=== PATIENT | female | born 1940 | race Caucasian/White ===

== ENCOUNTER 2017-10-16 10:48 | Emergency (ER) | payer MEDICARE, OTHER ==
[2017-10-16 11:43] LABS: BASO # 0.1 10^3/uL (0.0-0.2); BASO % 0.6 % (0.0-1.0); EOS # 0.2 10^3/uL (0.0-0.50); EOS % 1.7 % (0.0-3.0); HEMATOCRIT 41.2 % (36.0-47.0); HEMOGLOBIN 13.6 g/dl (12.0-15.5); IMMATURE GRANULOCYTE % 0.5 % (0-3.0); LYMPH # 1.1 10^3/uL (1.5-4.5); LYMPH % 13.1 % (24.0-44.0); MEAN CORPUSCULAR HEMOGLOBIN 29.6 pg (27.0-33.0); MEAN CORPUSCULAR VOLUME 89.6 fl (80.0-96.0); MONO # 0.5 10^3/uL (0.0-0.8); MONO % 6.2 % (0.0-5.0); NEUTROPHILS # 6.8 10^3/uL (1.8-7.7); NEUTROPHILS % 77.9 % (36.0-66.0); PLATELET COUNT, AUTOMATED 251 10^3/uL (150-450); RED CELL DISTRIBUTION WIDTH 12.1 % (11.5-14.5); WHITE BLOOD COUNT 8.7 10^3/uL (4.0-10.0)
[2017-10-16 11:53] LABS: ALBUMIN 3.6 GM/DL (3.2-5.2); ALBUMIN/GLOBULIN RATIO 1.03 (1.00-1.93); ALKALINE PHOSPHATASE 90 U/L (45-117); ALT/SGPT 19 U/L (12-78); ANION GAP 5 MEQ/L (8-16); AST/SGOT 14 U/L (7-37); BILIRUBIN,DIRECT < 0.1 MG/DL (0.0-0.2); BILIRUBIN,TOTAL 0.3 MG/DL (0.2-1.0); BLOOD UREA NITROGEN 12 MG/DL (7-18); CALCIUM LEVEL 9.1 MG/DL (8.8-10.2); CARBON DIOXIDE LEVEL 30 MEQ/L (21-32); CHLORIDE LEVEL 103 MEQ/L (98-107); CREATININE FOR GFR 0.81 MG/DL (0.55-1.30); GLOMERULAR FILTRATION RATE > 60.0 (>39); GLUCOSE, FASTING 98 MG/DL (70-100); LIPASE 157 U/L (73-393); SODIUM LEVEL 138 MEQ/L (136-145); TOTAL PROTEIN 7.1 GM/DL (6.4-8.2)
[2017-10-16 12:00] LABS: INR 0.99; PROTHROMBIN TIME 13.2 SECONDS (12.1-14.4)
[2017-10-16 12:01] LABS: PARTIAL THROMBOPLASTIN TIME 30.8 SECONDS (25.4-37.6)
[2017-10-16] MEDS: GASTROGRAFIN SOLUTION 30ML PO ×2 (13:22→13:49)
[2017-10-16] MEDS ORDERED: ISOVUE-370 76% 100ML VIAL (Q9967) As Ordered (14:13)
== END 2017-10-16 17:29 | disposition home or self-care (01) ==
LOC: M ED 10:48
DX: K57.30 Diverticulosis of large intestine without perforation or abscess without bleeding (principal); K62.5 Hemorrhage of anus and rectum; I73.00 Raynaud's syndrome without gangrene; Z87.442 Personal history of urinary calculi; Z80.0 Family history of malignant neoplasm of digestive organs; Z88.5 Allergy status to narcotic agent; Z88.8 Allergy status to other drugs, medicaments and biological substances; Z88.0 Allergy status to penicillin; Z88.2 Allergy status to sulfonamides; Z91.048 Other nonmedicinal substance allergy status; Z79.899 Other long term (current) drug therapy
CPT/HCPCS: Q9963

== ENCOUNTER → 2017-10-23 | Outpatient (REF) | payer MEDICARE ==
[2017-10-23 19:17] LABS: FERRITIN 103 NG/ML (8-252); IRON (FE) 63 UG/DL (50-170); PERCENT SATURATION 20.5 % (13.2-45.0); TOTAL IRON BINDING CAPACITY 307 UG/DL (250-450)
[2017-10-25 12:19] LABS: CONTROL LINE HPYORI INT CTR LINE PRESENT; H PYLORI QUALITATIVE IgG NEGATIVE (NEGATIVE)
== END ==
LOC: M LAB REF 17:10
DX: K57.31 Diverticulosis of large intestine without perforation or abscess with bleeding (principal)
CPT/HCPCS: 83550

== ENCOUNTER 2017-12-13 10:25 | Day surgery (SDC) | payer MEDICARE ==
[2017-12-13] MEDS: NS 1,000 ML IV (10:46)
[2017-12-13] MEDS ORDERED: PROPOFOL 200 MG/20 ML VIAL As Ordered (11:36)
[2017-12-13] MEDS ORDERED: LIDOCAINE 2% INJ 100 MG/5 ML SDV (FOR ANES.) As Ordered (11:36)
[2017-12-13] MEDS ORDERED: ePHEDrine SULFATE 25 MG/5 ML(5MG/ML) SYRINGE As Ordered (11:59)
== END 2017-12-13 12:12 | disposition home or self-care (01) ==
LOC: M OPP 10:25
DX: K62.5 Hemorrhage of anus and rectum (principal); D12.5 Benign neoplasm of sigmoid colon; K64.0 First degree hemorrhoids; M25.511 Pain in right shoulder; M25.512 Pain in left shoulder; Z78.0 Asymptomatic menopausal state; Z87.442 Personal history of urinary calculi; Z88.5 Allergy status to narcotic agent; Z88.0 Allergy status to penicillin; Z88.8 Allergy status to other drugs, medicaments and biological substances; Z88.2 Allergy status to sulfonamides; Z91.048 Other nonmedicinal substance allergy status; Z80.7 Family history of other malignant neoplasms of lymphoid, hematopoietic and related tissues; Z80.8 Family history of malignant neoplasm of other organs or systems
CPT/HCPCS: 45385

== ENCOUNTER → 2018-07-10 | Outpatient (CLI) | payer MEDICARE ==
[~2018-07-10] MED LIST: CENTCHW4 PO; CIPR-249 PO; HYDR-3715 PO; NAPR250T4 PO; OSTETAB4 PO; REFR0.5D8 OU; TYLE325T5 PO; VITA2000 PO; ZOFR4TAB16 PO
--- NOTE | 2018-07-10 13:54 | REP ---
Chest x-ray: Two views. History: Kidney stone. Comparison study: February 07, 2011. Findings: The lungs are symmetrically aerated and free of infiltrate. The pleural angles are sharp. There is a granulomatous calcification in the left upper perihilar region which is unchanged from the 2011 study. The aorta is tortuous. No significant bony abnormality is seen. There are some degenerative changes in the thoracic spine. Vascular calcification is noted in the abdomen. Impression: No active disease. Electronically Signed by Tushar Boyer MD 07/10/2018 08:39 P
[2018-07-10 15:25] LABS: BLOOD UREA NITROGEN 14 MG/DL (7-18); CALCIUM LEVEL 9.5 MG/DL (8.8-10.2); CARBON DIOXIDE LEVEL 32 MEQ/L (21-32); CHLORIDE LEVEL 105 MEQ/L (98-107); CREATININE FOR GFR 0.81 MG/DL (0.55-1.30); GLOMERULAR FILTRATION RATE > 60.0 (>39); GLUCOSE, FASTING 97 MG/DL (70-100); POTASSIUM SERUM 4.2 MEQ/L (3.5-5.1); SODIUM LEVEL 139 MEQ/L (136-145)
[2018-07-10 15:29] LABS: INR 0.99; PROTHROMBIN TIME 13.2 SECONDS (12.1-14.4)
[2018-07-10 15:30] LABS: PARTIAL THROMBOPLASTIN TIME 34.6 SECONDS (25.4-37.6)
[2018-07-10 15:35] LABS: HEMATOCRIT 43.9 % (36.0-47.0); HEMOGLOBIN 13.6 g/dl (12.0-15.5); MEAN CORPUSCULAR HEMOGLOBIN 27.8 pg (27.0-33.0); MEAN CORPUSCULAR VOLUME 89.8 fl (80.0-96.0); PLATELET COUNT, AUTOMATED 269 10^3/uL (150-450); RED BLOOD COUNT 4.89 10^6/uL (4.00-5.40); WHITE BLOOD COUNT 8.4 10^3/uL (4.0-10.0)
== END ==
LOC: M SMT 11:07
PROVIDERS: ATTEND Nurse Practitioner Family
DX: Z01.818 Encounter for other preprocedural examination (principal); N20.0 Calculus of kidney

== ENCOUNTER → 2018-07-16 | Outpatient (REF) | payer MEDICARE ==
[2018-07-16 20:02] LABS: APPEARANCE, URINE HAZY (CLEAR); BACTERIA, URINE AUTO NEGATIVE (NEGATIVE); BILIRUBIN, URINE AUTO NEGATIVE (NEGATIVE); BLOOD, URINE BLOOD 2+ (NEGATIVE); CALCIUM OXALATE CRYSTALS LARGE; COLOR, URINE YELLOW (YELLOW); GLUCOSE, URINE (UA) AUTO NEGATIVE (NEGATIVE); KETONE, URINE AUTO NEGATIVE (NEGATIVE); LEUKOCYTE ESTERASE, URINE AUTO TRACE (NEGATIVE); MUCUS, URINE SMALL (NEGATIVE); NITRITE, URINE AUTO NEGATIVE (NEGATIVE); PROTEIN, URINE AUTO NEGATIVE (NEGATIVE); RBC, URINE AUTO 6 /HPF (0-3); SPECIFIC GRAVITY URINE AUTO 1.013 (1.002-1.035); SQUAMOUS EPITHELIAL CELL UR AU 0 /HPF (0-6); UROBILINOGEN, URINE AUTO 0.2 mg/dL (0.0-2.0); WBC, URINE AUTO 12 /HPF (0-3)
== END ==
LOC: M SMT 19:13
PROVIDERS: ATTEND Nurse Practitioner Family
DX: Z01.818 Encounter for other preprocedural examination (principal); N20.0 Calculus of kidney

== ENCOUNTER 2018-07-25 07:21 | Day surgery (SDC) | payer MEDICARE ==
[~2018-07-25] VITALS: Ht 172.7 cm; Wt 70.8 kg
[~2018-07-25 07:21] MED LIST changes: +CIPROFLOXACIN 400 MG in APPROPRIATE DILUENT 1 EA IV ONE; +LR 1,000 ML IV SCH
[2018-07-25] MEDS ORDERED: CIPR-249 PO (08:04)
[2018-07-25] MEDS ORDERED: SCOPOLAMINE 1MG TRANSDERMAL PATCH As Ordered ONE (08:53)
[2018-07-25] MEDS ORDERED: CONRAY-60 60% 50ML VIAL (Q9961) As Ordered ONE (09:00)
[2018-07-25] MEDS ORDERED: SCOPOLAMINE 1MG TRANSDERMAL PATCH TOP ONE (09:00)
[2018-07-25] MEDS ORDERED: ceFAZolin 2 GM/D5W 50 ML IV BAG (J0690 PER 500MG) As Ordered ONE (09:04)
[2018-07-25] MEDS ORDERED: ONDANSETRON 4MG/2ML VIAL (J2405) As Ordered ONE (09:32)
[2018-07-25] MEDS ORDERED: MIDAZOLAM INJ 2 MG/2 ML VIAL (J2250) As Ordered ONE (09:32)
[2018-07-25] MEDS ORDERED: PROPOFOL 200 MG/20 ML VIAL As Ordered ONE ×4 (09:32→10:49)
[2018-07-25] MEDS ORDERED: dexameTHASONE 4 MG/ML 1ML VIAL (J1100) As Ordered ONE (09:32)
[2018-07-25] MEDS ORDERED: fentaNYL 100 MCG/2 ML INJECTION (J3010) As Ordered ONE (09:32)
[2018-07-25] MEDS ORDERED: ePHEDrine SULFATE 25 MG/5 ML(5MG/ML) SYRINGE As Ordered ONE (09:32)
[2018-07-25] MEDS ORDERED: LIDOCAINE 2% INJ 100 MG/5 ML SDV (FOR ANES.) As Ordered ONE (09:32)
[2018-07-25] MEDS ORDERED: fentaNYL 100 MCG/2 ML INJECTION (J3010) IV PRN (11:30)
[2018-07-25] MEDS ORDERED: LR 1,000 ML IV SCH (11:30)
[2018-07-25] MEDS ORDERED: NORCO, ANEXSIA 5/325MG TABLET (HYDROcodone/ACETAMINOPHEN) PO PRN ×2 (11:30→11:45)
[2018-07-25] MEDS ORDERED: ONDANSETRON 4MG/2ML VIAL (J2405) IV PRN (11:30)
[2018-07-25] MEDS ORDERED: oxyBUTYnin 5 MG TAB PO PRN (11:45)
--- NOTE | 2018-07-25 11:56 | REP ---
Retrograde pyelogram: Four views. History: Stent placement. 16 seconds of fluoroscopy time is reported. Findings: A sequence of four last image hold fluoroscopically obtained spot radiographs of the abdomen document bilateral ureteral cannulation, contrast injection, and stent placement. Electronically Signed by Tushar Boyer MD 07/25/2018 03:42 P
[2018-07-25 12:40] VITALS: BP 163/77
--- NOTE | 2018-07-25 15:28 | RO ---
DATE OF PROCEDURE: 07/25/2018 PREPROCEDURE DIAGNOSIS: Bilateral kidney stones. POSTPROCEDURE DIAGNOSIS: Bilateral kidney stones. PROCEDURE: Cystoscopy, bilateral ureteroscopy with laser lithotripsy and basket extraction of stones, bilateral retrograde pyelogram with intraoperative interpretation of images, bilateral ureteral stent placement. SURGEON: Dr. Derian Beal. DESULFURIZER MACHINE: None. ANESTHESIA: General. OPERATIVE INDICATIONS: This is a 77-year-old female, who on recent CT scan was found to have a few distal right ureteral stones along with bilateral kidney stones. She is brought to the operating room today with the above listed procedure. DESCRIPTION OF PROCEDURE: The patient was brought to the operating room and general anesthesia was induced. Prophylactic antibiotics were infused. She was then placed in the dorsal lithotomy position, prepped and draped in the usual sterile fashion. At this point a wire was advanced up the right collecting system. I then went up the right ureter with a short semi-rigid ureteroscope and no stones were seen in the ureter. I examined all the way up to the ureteropelvic junction. No stones were seen, indicating that she passed her ureteral stones. At this point, a ureteral access sheath was advanced up the right collecting system. I then went up with the flexible ureteroscope. The right kidney was thoroughly examined and a few stones were seen with the largest measuring around 7 mm in size. The stone was then fragmented into smaller pieces with a laser fiber and then all the fragments were removed. Once satisfied all of the fragments had been removed, a retrograde pyelogram was performed and was notable for mild right hydronephrosis with no extravasation. I then removed the access sheath along with the ureteroscope and once again, no stones were seen within the ureter. I then utilized the wire to advance a 6-Luxembourger x 22-32 cm JJ ureteral stent up the right collecting system. The wire was removed and there were adequate curls of the stent in the right ureteral pelvis and in the bladder. I then advanced the wire up the left collecting system. I then advanced a ureteral access sheath over the wire and went up with the flexible ureteroscope. The left kidney was thoroughly examined and the only stone see was the 1.4 cm stone in the upper pole jorge. The stone was then fragmented into smaller pieces using a laser fiber and all the fragments were removed. No fragments remained except for a few very tiny fragments which should be small enough to pass. At this point a retrograde pyelogram was performed and was notable for mild left hydronephrosis with no extravasation. I then withdrew the ureteroscope along with the access sheath and no stones were seen in the ureter. I then utilized the wire to advance a 6-Luxembourger by 22-32 cm JJ ureteral stent up to the left collecting system. The wire was removed and there were adequate curls of the stent in the left renal pelvis and in the bladder. The bladder was drained of all fluids and this marked the conclusion of the procedure. The patient was then taken out of dorsal lithotomy position, awakened from anesthesia and transported to the recovery room in stable condition. ESTIMATED BLOOD LOSS: 5 mL. COMPLICATIONS: None. SPECIMENS: Kidney stone fragments. PLAN: The patient will followup in the clinic in approximately 2-3 weeks for stent removal. She will also require a 24 hour urine collection and metabolic workup of stones within the next few months. BENNY
[2018-08-01 00:06] LABS: CA Oxalate Dihy 55 % (.); COMMENT Note: (.); Ca Ox Monohydrate 15 % (.)
== END 2018-07-25 13:03 | disposition home or self-care (01) ==
LOC: M SDC 07:21
PROVIDERS: ATTEND Urology
DX: N20.0 Calculus of kidney (principal); K21.9 Gastro-esophageal reflux disease without esophagitis; Z88.0 Allergy status to penicillin; Z88.2 Allergy status to sulfonamides; Z79.899 Other long term (current) drug therapy
CPT/HCPCS: 52356; 74420; 82360; 88300; C1769; C1894; C2617; J0690; J1100; J2250; J2405; J3010; Q9961

== ENCOUNTER → 2018-11-06 | Outpatient (REF) | payer MEDICARE ==
[~2018-11-06] MED LIST changes: -CIPROFLOXACIN 400 MG in APPROPRIATE DILUENT 1 EA IV ONE; -LR 1,000 ML IV SCH
[2018-11-07 10:58] LABS: APPEARANCE, URINE HAZY (CLEAR); BACTERIA, URINE AUTO NEGATIVE (NEGATIVE); BILIRUBIN, URINE AUTO NEGATIVE (NEGATIVE); BLOOD, URINE BLOOD NEGATIVE (NEGATIVE); CALCIUM OXALATE CRYSTALS LARGE; COLOR, URINE YELLOW (YELLOW); GLUCOSE, URINE (UA) AUTO NEGATIVE (NEGATIVE); KETONE, URINE AUTO NEGATIVE (NEGATIVE); LEUKOCYTE ESTERASE, URINE AUTO TRACE (NEGATIVE); MUCUS, URINE SMALL (NEGATIVE); NITRITE, URINE AUTO NEGATIVE (NEGATIVE); PROTEIN, URINE AUTO NEGATIVE (NEGATIVE); RBC, URINE AUTO 6 /HPF (0-3); SPECIFIC GRAVITY URINE AUTO 1.012 (1.002-1.035); SQUAMOUS EPITHELIAL CELL UR AU 0 /HPF (0-6); UROBILINOGEN, URINE AUTO 0.2 mg/dL (0.0-2.0); WBC, URINE AUTO 10 /HPF (0-3)
== END ==
LOC: M SMT 09:48
PROVIDERS: ATTEND Nurse Practitioner Women's Health
DX: Z87.442 Personal history of urinary calculi (principal)

== ENCOUNTER → 2019-05-09 | Outpatient (REF) | payer MEDICARE ==
[2019-05-09 14:25] LABS: AMORPHOUS SEDIMENT SMALL (NEGATIVE); APPEARANCE, URINE HAZY (CLEAR); BACTERIA, URINE AUTO 1+ (NEGATIVE); BILIRUBIN, URINE AUTO NEGATIVE (NEGATIVE); BLOOD, URINE BLOOD NEGATIVE (NEGATIVE); COLOR, URINE YELLOW (YELLOW); GLUCOSE, URINE (UA) AUTO NEGATIVE (NEGATIVE); KETONE, URINE AUTO NEGATIVE (NEGATIVE); LEUKOCYTE ESTERASE, URINE AUTO 3+ (NEGATIVE); MUCUS, URINE SMALL (NEGATIVE); NITRITE, URINE AUTO NEGATIVE (NEGATIVE); PROTEIN, URINE AUTO NEGATIVE (NEGATIVE); RBC, URINE AUTO 2 /HPF (0-3); SPECIFIC GRAVITY URINE AUTO 1.011 (1.002-1.035); SQUAMOUS EPITHELIAL CELL UR AU 6 /HPF (0-6); TRANSITIONAL EPITHELIAL AUTO 3 /HPF; UROBILINOGEN, URINE AUTO 0.2 mg/dL (0.0-2.0); WBC, URINE AUTO 17 /HPF (0-3)
== END ==
LOC: M SMT 13:28
PROVIDERS: ATTEND Nurse Practitioner Women's Health
DX: Z87.442 Personal history of urinary calculi (principal); N20.0 Calculus of kidney

== ENCOUNTER → 2019-11-13 | Outpatient (REF) | payer MEDICARE ==
[2019-11-13 14:21] LABS: APPEARANCE, URINE CLEAR (CLEAR); BACTERIA, URINE AUTO 1+ (NEGATIVE); BILIRUBIN, URINE AUTO NEGATIVE (NEGATIVE); BLOOD, URINE BLOOD 1+ (NEGATIVE); COLOR, URINE YELLOW (YELLOW); GLUCOSE, URINE (UA) AUTO NEGATIVE (NEGATIVE); KETONE, URINE AUTO NEGATIVE (NEGATIVE); LEUKOCYTE ESTERASE, URINE AUTO TRACE (NEGATIVE); MUCUS, URINE SMALL (NEGATIVE); NITRITE, URINE AUTO NEGATIVE (NEGATIVE); PROTEIN, URINE AUTO NEGATIVE (NEGATIVE); RBC, URINE AUTO 11 /HPF (0-3); SPECIFIC GRAVITY URINE AUTO 1.008 (1.002-1.035); SQUAMOUS EPITHELIAL CELL UR AU 0 /HPF (0-6); UROBILINOGEN, URINE AUTO 0.2 mg/dL (0.0-2.0); WBC, URINE AUTO 2 /HPF (0-3)
== END ==
LOC: M LAB REF 08:45
PROVIDERS: ATTEND Nurse Practitioner Women's Health
DX: N20.0 Calculus of kidney (principal)

== ENCOUNTER → 2019-11-26 | Outpatient (REF) | payer MEDICARE ==
[2019-11-26 18:40] LABS: APPEARANCE, URINE CLEAR (CLEAR); BACTERIA, URINE AUTO NEGATIVE (NEGATIVE); BILIRUBIN, URINE AUTO NEGATIVE (NEGATIVE); BLOOD, URINE BLOOD NEGATIVE (NEGATIVE); COLOR, URINE YELLOW (YELLOW); GLUCOSE, URINE (UA) AUTO NEGATIVE (NEGATIVE); KETONE, URINE AUTO NEGATIVE (NEGATIVE); LEUKOCYTE ESTERASE, URINE AUTO 1+ (NEGATIVE); MUCUS, URINE SMALL (NEGATIVE); NITRITE, URINE AUTO NEGATIVE (NEGATIVE); PROTEIN, URINE AUTO NEGATIVE (NEGATIVE); RBC, URINE AUTO 2 /HPF (0-3); SPECIFIC GRAVITY URINE AUTO 1.009 (1.002-1.035); SQUAMOUS EPITHELIAL CELL UR AU 0 /HPF (0-6); UROBILINOGEN, URINE AUTO 0.2 mg/dL (0.0-2.0); WBC, URINE AUTO 9 /HPF (0-3)
== END ==
LOC: M LAB REF 10:46
PROVIDERS: ATTEND Nurse Practitioner Women's Health
DX: N20.0 Calculus of kidney (principal)

== ENCOUNTER → 2020-06-04 | Outpatient (REF) | payer MEDICARE ==
[~2020-06-04] MED LIST changes: +NAPR-849 PO; -NAPR250T4 PO
[2020-06-04 12:43] LABS: APPEARANCE, URINE CLEAR (CLEAR); BACTERIA, URINE AUTO NEGATIVE (NEGATIVE); BILIRUBIN, URINE AUTO NEGATIVE (NEGATIVE); BLOOD, URINE BLOOD 2+ (NEGATIVE); COLOR, URINE STRAW (YELLOW); GLUCOSE, URINE (UA) AUTO NEGATIVE (NEGATIVE); KETONE, URINE AUTO NEGATIVE (NEGATIVE); LEUKOCYTE ESTERASE, URINE AUTO TRACE (NEGATIVE); NITRITE, URINE AUTO NEGATIVE (NEGATIVE); PROTEIN, URINE AUTO NEGATIVE (NEGATIVE); RBC, URINE AUTO 6 /HPF (0-3); SPECIFIC GRAVITY URINE AUTO 1.005 (1.002-1.035); SQUAMOUS EPITHELIAL CELL UR AU 0 /HPF (0-6); UROBILINOGEN, URINE AUTO 0.2 mg/dL (0.0-2.0); WBC, URINE AUTO 7 /HPF (0-3)
== END ==
LOC: M SMT 12:28
PROVIDERS: ATTEND Nurse Practitioner Women's Health
DX: N20.0 Calculus of kidney (principal)

== ENCOUNTER → 2020-06-12 | Outpatient (REF) | payer MEDICARE ==
[2020-06-12 12:43] LABS: APPEARANCE, URINE CLEAR (CLEAR); BACTERIA, URINE AUTO NEGATIVE (NEGATIVE); BILIRUBIN, URINE AUTO NEGATIVE (NEGATIVE); BLOOD, URINE BLOOD 1+ (NEGATIVE); COLOR, URINE YELLOW (YELLOW); GLUCOSE, URINE (UA) AUTO NEGATIVE (NEGATIVE); KETONE, URINE AUTO NEGATIVE (NEGATIVE); LEUKOCYTE ESTERASE, URINE AUTO TRACE (NEGATIVE); MUCUS, URINE SMALL (NEGATIVE); NITRITE, URINE AUTO NEGATIVE (NEGATIVE); PROTEIN, URINE AUTO NEGATIVE (NEGATIVE); RBC, URINE AUTO 10 /HPF (0-3); SPECIFIC GRAVITY URINE AUTO 1.008 (1.002-1.035); SQUAMOUS EPITHELIAL CELL UR AU 0 /HPF (0-6); UROBILINOGEN, URINE AUTO 0.2 mg/dL (0.0-2.0); WBC, URINE AUTO 6 /HPF (0-3)
== END ==
LOC: M SMT 12:26
PROVIDERS: ATTEND Nurse Practitioner Women's Health
DX: R31.29 Other microscopic hematuria (principal)

== ENCOUNTER → 2020-06-18 | Outpatient (REF) | payer MEDICARE ==
[2020-06-18 14:00] LABS: BLOOD UREA NITROGEN 13 MG/DL (7-18); CALCIUM LEVEL 9.3 MG/DL (8.8-10.2); CARBON DIOXIDE LEVEL 33 MEQ/L (21-32); CHLORIDE LEVEL 106 MEQ/L (98-107); CREATININE FOR GFR 0.84 MG/DL (0.55-1.30); GLOMERULAR FILTRATION RATE > 60.0 (>39); GLUCOSE, FASTING 87 MG/DL (70-100); POTASSIUM SERUM 3.9 MEQ/L (3.5-5.1); SODIUM LEVEL 142 MEQ/L (136-145)
== END ==
LOC: M LABSMT 09:56 → M SFHCADAM 10:05
PROVIDERS: ATTEND Nurse Practitioner Women's Health
DX: R31.29 Other microscopic hematuria (principal)

== ENCOUNTER → 2020-07-06 | Outpatient (CLI) | payer MEDICARE ==
[~2020-07-06] MED LIST changes: +ISOVUE-370 76% 100ML VIAL As Ordered ONE
--- NOTE | 2020-07-06 08:48 | REP ---
INDICATION: MICROSCOPIC HEMATURIA. COMPARISON: None TECHNIQUE: Axial precontrast, contrast-enhanced and delayed images from the lung bases to the pubic symphysis using 100 cc Isovue 370 intravenous contrast material. Coronal and sagittal reformations obtained. Volume rendered 3D CT urogram created. This CT examination was performed using the following dose reduction techniques: Automated exposure control, adjustment of mA and/or kv according to the patient's size, and the use of iterative reconstruction technique. FINDINGS: Innumerable bilateral nonobstructing nephroliths are appreciated measuring up to approximately 5 mm in the right kidney and 7 mm in the left kidney. 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 There is evidence for presumed age-related cortical thinning and increased central sinus fat along with few small bilateral simple appearing cysts measuring up to 12 mm in the right kidney and 6 mm in the left kidney. No hydronephrosis, obstructing ureteral calculi or renal mass lesion appreciated. Spleen demonstrates parenchymal calcifications consistent with prior granulomatous disease. Liver is grossly unremarkable. Cholelithiasis noted without acute cholecystitis. The bilateral adrenal glands are normal. There is no evidence for bowel obstruction. Diffuse colonic diverticulosis noted without acute diverticulitis. Pelvis demonstrates normal bladder and evidence for prior hysterectomy. No ascites. No free air. No intraperitoneal or retroperitoneal adenopathy. Abdominal aorta and vasculature appear normal. Musculoskeletal structures are intact and without acute osseous abnormality. IMPRESSION: 1. Kidneys demonstrate bilateral nephrolithiasis and findings suspicious for chronic papillary necrosis along with age-related changes and few simple cysts. 2. Cholelithiasis without acute cholecystitis. 3. Diffuse diverticulosis. <Electronically signed by Guido Banks > 07/06/20 [id number]
== END ==
LOC: M RAD 07:43
PROVIDERS: ATTEND Nurse Practitioner Women's Health
DX: N20.0 Calculus of kidney (principal); K80.20 Calculus of gallbladder without cholecystitis without obstruction; K57.30 Diverticulosis of large intestine without perforation or abscess without bleeding; R31.29 Other microscopic hematuria
CPT/HCPCS: 74178; Q9967

== ENCOUNTER → 2020-08-21 | Outpatient (CLI) | payer MEDICARE ==
[~2020-08-21] MED LIST changes: -ISOVUE-370 76% 100ML VIAL As Ordered ONE
--- NOTE | 2020-08-21 14:44 | REPPI ---
INDICATION: M54.31 RIGHT SIDED SCIATICA M79.661 PAIN IN RIGHT WALSH COMPARISON: None. TECHNIQUE: AP and lateral right tibia/fibula FINDINGS: Generalized age-related changes at the knee and ankle. No acute fracture or dislocation. No subcutaneous emphysema or foreign body. IMPRESSION: Relatively age-appropriate right tibia/fibular radiographs. <Electronically signed by Guido Banks > 08/21/20 [id number]
--- NOTE | 2020-08-21 14:48 | REPPI ---
INDICATION: M54.31 RIGHT SIDED SCIATICA M79.661 PAIN IN RIGHT WALSH COMPARISON: None. TECHNIQUE: AP and frog-lateral views of the right hip FINDINGS: Early moderate degenerative changes includes increased sclerosis to the acetabular roof, joint space narrowing, and marginal spurring/early osteophyte formation. No acute or healed fracture. Surrounding soft tissues are normal. IMPRESSION: Early moderate arthritic degenerative changes. <Electronically signed by Guido Banks > 08/21/20 [id number]
--- NOTE | 2020-08-21 14:50 | REPPI ---
INDICATION: M54.31 RIGHT SIDED SCIATICA M79.661 PAIN IN RIGHT WALSH COMPARISON: None. TECHNIQUE: AP, lateral, bilateral oblique, and coned-down views of the lumbar spine. FINDINGS: Generalized osteopenia and early advanced multilevel degenerative changes include endplate sclerosis, marginal osteophytosis, disc space narrowing and facet hypertrophy. No acute fracture/compression injury or subluxation. Disc space narrowing most pronounced at L2-3. IMPRESSION: Osteopenia and early advanced multilevel degenerative spondylosis. <Electronically signed by Guido Banks > 08/21/20 [id number]
== END ==
LOC: M PLAIMG 13:22
PROVIDERS: ATTEND Physician Assistant
DX: M51.36 Other intervertebral disc degeneration, lumbar region (principal); M85.88 Other specified disorders of bone density and structure, other site; M16.11 Unilateral primary osteoarthritis, right hip; M54.31 Sciatica, right side; M79.661 Pain in right lower leg

== ENCOUNTER → 2020-08-27 | Outpatient (REF) | payer MEDICARE ==
[2020-08-27 13:43] LABS: HEMATOCRIT 46.2 % (36.0-47.0); HEMOGLOBIN 14.6 g/dl (12.0-15.5); MEAN CORPUSCULAR HEMOGLOBIN 28.9 pg (27.0-33.0); MEAN CORPUSCULAR HGB CONC 31.6 g/dl (32.0-36.5); MEAN CORPUSCULAR VOLUME 91.3 fl (80.0-96.0); PLATELET COUNT, AUTOMATED 255 10^3/uL (150-450); RED BLOOD COUNT 5.06 10^6/uL (4.00-5.40); WHITE BLOOD COUNT 6.8 10^3/uL (4.0-10.0)
[2020-08-27 15:37] LABS: ALBUMIN 3.6 GM/DL (3.2-5.2); ALT/SGPT 14 U/L (12-78); BILIRUBIN,TOTAL 0.4 MG/DL (0.2-1.0); BLOOD UREA NITROGEN 16 MG/DL (7-18); CALCIUM LEVEL 9.5 MG/DL (8.8-10.2); CARBON DIOXIDE LEVEL 29 MEQ/L (21-32); CHLORIDE LEVEL 106 MEQ/L (98-107); CHOLESTEROL LEVEL 182 MG/DL (<200); CHOLESTEROL RISK RATIO 2.493 (<5); CREATININE FOR GFR 0.89 MG/DL (0.55-1.30); FREE T4 1.13 NG/DL (0.76-1.46); GLOMERULAR FILTRATION RATE > 60.0 (>39); GLUCOSE, FASTING 109 MG/DL (70-100); HDL CHOLESTEROL 73 MG/DL (>40); LDL CHOLESTEROL 90 MG/DL (<100); NON-HDL-C 109 MG/DL; POTASSIUM SERUM 4.3 MEQ/L (3.5-5.1); SODIUM LEVEL 142 MEQ/L (136-145); TOTAL 25(OH) VITAMIN D 45.6 NG/ML (30.0-100.0); TOTAL PROTEIN 6.4 GM/DL (6.4-8.2); TRIGLYCERIDES LEVEL 93 MG/DL (<150)
== END ==
LOC: M SFHCADAM 08:17
PROVIDERS: ATTEND Physician Assistant
DX: Z23 Encounter for immunization (principal); M85.80 Other specified disorders of bone density and structure, unspecified site; E55.9 Vitamin D deficiency, unspecified; E78.00 Pure hypercholesterolemia, unspecified

== ENCOUNTER 2020-12-12 08:45 | Outpatient (CLI) | payer MEDICARE ==
[2020-12-12] VITALS (9 sets, daily range): BP systolic 134–168; BP diastolic 69–92
[~2020-12-12] VITALS: Ht 175.3 cm; Wt 70.8 kg
[~2020-12-12 08:45] MED LIST changes: +ACETAMINOPHEN TAB 650MG DOSE (2X325MG) PO PRN; +ALBUTEROL 90 MCG/ACT 8GM HFA INHALER INH PRN; +ALBUTEROL SULFATE 2.5 MG/0.5 ML INH NEB SOLN INH PRN; +EPINEPHrine INJ 1 MG/ML 1ML AMP IM PRN; +NS 1,000 ML IV SCH; +diphenhydrAMINE 50MG CAP PO ONE; +diphenhydrAMINE 50MG/ML VIAL (J1200) IV PRN; +methylPREDNISolone 125MG 2ML VIAL IV ONE; +methylPREDNISolone 125MG 2ML VIAL IV PRN
[2020-12-12] MEDS ORDERED: methylPREDNISolone 125MG 2ML VIAL IV ONE (09:25)
[2020-12-12] MEDS ORDERED: diphenhydrAMINE 50MG CAP PO ONE (09:25)
[2020-12-12] MEDS ORDERED: CASIRIVIMAB/IMDEVIMAB 1,200 MG in NS 250 ML IV ONE ×2 (10:00→13:00)
[2020-12-13] MEDS ORDERED: UNRESOLVED CLARIFICATION ENTRY XX SCH (00:01)
== END 2020-12-12 13:43 | disposition home or self-care (01) ==
LOC: M OPCLI4 08:45 → M ICU 09:22 → M OPCLI4 13:43
PROVIDERS: ATTEND Family Medicine
DX: U07.1 COVID-19 (principal); Z88.0 Allergy status to penicillin; Z88.2 Allergy status to sulfonamides; Z88.6 Allergy status to analgesic agent
CPT/HCPCS: 96375; J2930; M0243

== ENCOUNTER → 2020-12-30 | Outpatient (REF) | payer MEDICARE ==
[~2020-12-30] MED LIST changes: -ACETAMINOPHEN TAB 650MG DOSE (2X325MG) PO PRN; -ALBUTEROL 90 MCG/ACT 8GM HFA INHALER INH PRN; -ALBUTEROL SULFATE 2.5 MG/0.5 ML INH NEB SOLN INH PRN; -EPINEPHrine INJ 1 MG/ML 1ML AMP IM PRN; -NS 1,000 ML IV SCH; -diphenhydrAMINE 50MG CAP PO ONE; -diphenhydrAMINE 50MG/ML VIAL (J1200) IV PRN; -methylPREDNISolone 125MG 2ML VIAL IV ONE; -methylPREDNISolone 125MG 2ML VIAL IV PRN
[2020-12-30 15:27] LABS: APPEARANCE, URINE CLEAR (CLEAR); BACTERIA, URINE AUTO NEGATIVE (NEGATIVE); BILIRUBIN, URINE AUTO NEGATIVE (NEGATIVE); BLOOD, URINE BLOOD 2+ (NEGATIVE); COLOR, URINE YELLOW (YELLOW); GLUCOSE, URINE (UA) AUTO NEGATIVE (NEGATIVE); KETONE, URINE AUTO NEGATIVE (NEGATIVE); LEUKOCYTE ESTERASE, URINE AUTO 2+ (NEGATIVE); MUCUS, URINE SMALL (NEGATIVE); NITRITE, URINE AUTO NEGATIVE (NEGATIVE); PROTEIN, URINE AUTO NEGATIVE (NEGATIVE); RBC, URINE AUTO 9 /HPF (0-3); SPECIFIC GRAVITY URINE AUTO 1.006 (1.002-1.035); SQUAMOUS EPITHELIAL CELL UR AU 1 /HPF (0-6); UROBILINOGEN, URINE AUTO 0.2 mg/dL (0.0-2.0); WBC, URINE AUTO 9 /HPF (0-3)
== END ==
LOC: M SMT 15:01
PROVIDERS: ATTEND Nurse Practitioner Women's Health
DX: R31.29 Other microscopic hematuria (principal)

== ENCOUNTER → 2021-01-21 | Outpatient (CLI) | payer MEDICARE ==
--- NOTE | 2021-01-21 14:08 | REP ---
INDICATION: ENCTR SCREEN MAMMO FOR MALIGNANT NEOPLASM OF BREAST. COMPARISON: Multiple the latest 11/14/2019 TECHNIQUE: Digital screening mammography was carried out bilaterally in the CC and MLO projections using both 2D and 3D modalities and compared to the prior exams. By history, the patient has no complaints of a palpable breast abnormality or other significant breast complaints. FINDINGS: The breasts are unchanged in size and shape. Once again, scattered dense heterogenous somewhat nodular fibroglandular elements are seen bilaterally. Stable benign calcifications are seen bilaterally. In the right breast there are 2 potential victor hugo densities both are in the outer aspect on the CC view with 1 being in the upper aspect and the other in the central retroareolar region in posterior retroglandular adipose. No other suspicious features are seen in either breast. The Volpara volumetric breast density pattern is b. IMPRESSION: BIRADS/ACR category 0 mammogram. Two potential areas of concern in the right breast as described above and for which diagnostic digital DBT spot compression views are recommended in the CC and MLO projections along with ultrasonography if indicated. This patient's Tyrer-Cuzick lifetime breast cancer risk assessment score is 2.4%. This mammogram was interpreted with the aid of an FDA-approved computer-aided detection system. The patient states she had a clinical breast exam in over a year. The patient letter being requested is M0. RECOMMENDATION: As above <Electronically signed by Aleksey Riggs > 01/21/21 [id number]
== END ==
LOC: M WHC 12:55
PROVIDERS: ATTEND Physician Assistant
DX: R92.2 Inconclusive mammogram (principal)

== ENCOUNTER → 2021-02-17 | Outpatient (CLI) | payer MEDICARE | LOC: M WHC 09:00 | PROVIDERS: ATTEND Physician Assistant | DX: N63.13 Unspecified lump in the right breast, lower outer quadrant (principal) | CPT/HCPCS: 76642; 77065; G0279 ==

== ENCOUNTER → 2021-07-05 | Outpatient (REF) | payer MEDICARE ==
[2021-07-05 15:21] LABS: APPEARANCE, URINE MANUAL CLEAR (CLEAR); COLOR, URINE MANUAL YELLOW (YELLOW)
[2021-07-05 15:23] LABS: BILIRUBIN, URINE MANUAL NEGATIVE (NEGATIVE); BLOOD URINE MANUAL POSITIVE (NEGATIVE); GLUCOSE, URINE (UA) MANUAL NEGATIVE (NEGATIVE); KETONE, URINE MANUAL NEGATIVE (NEGATIVE); LEUKOCYTE ESTERASE, URINE MAN POSITIVE (NEGATIVE); NITRITE, URINE MANUAL NEGATIVE (NEGATIVE); PROTEIN, URINE MANUAL TRACE mg/dL (NEGATIVE); UROBILINOGEN, URINE MANUAL NORMAL (NORMAL)
[2021-07-05 15:44] LABS: BACTERIA, URINE SMALL AMOUNT; HYALINE CAST, URINE NONE SEEN /lpf (0-1); SQUAMOUS EPITHELIAL CELL URINE SMALL AMOUNT /hpf (SMALL AMT); TRANSITIONAL EPI CELLS, URINE SMALL AMOUNT /hpf
== END ==
LOC: M SMT 13:12
PROVIDERS: ATTEND Nurse Practitioner Women's Health
DX: R31.29 Other microscopic hematuria (principal)

== ENCOUNTER → 2021-11-04 | Outpatient (REF) | payer MEDICARE ==
[2021-11-04 13:30] LABS: HEMATOCRIT 45.7 % (36.0-47.0); HEMOGLOBIN 14.4 g/dl (12.0-15.5); MEAN CORPUSCULAR HEMOGLOBIN 28.6 pg (27.0-33.0); MEAN CORPUSCULAR HGB CONC 31.5 g/dl (32.0-36.5); MEAN CORPUSCULAR VOLUME 90.7 fl (80.0-96.0); PLATELET COUNT, AUTOMATED 243 10^3/uL (150-450); RED BLOOD COUNT 5.04 10^6/uL (4.00-5.40); WHITE BLOOD COUNT 5.8 10^3/uL (4.0-10.0)
[2021-11-04 13:43] LABS: ALBUMIN 3.6 GM/DL (3.2-5.2); ALT/SGPT 16 U/L (12-78); BILIRUBIN,TOTAL 0.5 MG/DL (0.2-1.0); BLOOD UREA NITROGEN 14 MG/DL (7-18); CALCIUM LEVEL 9.7 MG/DL (8.8-10.2); CARBON DIOXIDE LEVEL 28 MEQ/L (21-32); CHLORIDE LEVEL 106 MEQ/L (98-107); CHOLESTEROL LEVEL 210 MG/DL (<200); CHOLESTEROL RISK RATIO 2.876 (<5); FREE T4 0.99 NG/DL (0.76-1.46); GLOMERULAR FILTRATION RATE > 60.0 (>32); GLUCOSE, FASTING 90 MG/DL (70-100); HDL CHOLESTEROL 73 MG/DL (>40); LDL CHOLESTEROL 116 MG/DL (<100); NON-HDL-C 137 MG/DL; POTASSIUM SERUM 3.8 MEQ/L (3.5-5.1); SODIUM LEVEL 139 MEQ/L (136-145); TOTAL PROTEIN 6.5 GM/DL (6.4-8.2); TRIGLYCERIDES LEVEL 104 MG/DL (<150)
== END ==
LOC: M SFHCADAM 07:36
PROVIDERS: ATTEND Physician Assistant
DX: E55.9 Vitamin D deficiency, unspecified (principal); E78.00 Pure hypercholesterolemia, unspecified; N20.0 Calculus of kidney

== ENCOUNTER → 2022-02-17 | Outpatient (CLI) | payer MEDICARE | LOC: M WHC 16:01 | PROVIDERS: ATTEND Physician Assistant | DX: Z12.31 Encounter for screening mammogram for malignant neoplasm of breast (principal) ==

== ENCOUNTER → 2022-05-25 | Outpatient (REF) | payer MEDICARE ==
[2022-05-25 13:55] LABS: AMORPHOUS SEDIMENT SMALL (NEGATIVE); APPEARANCE, URINE CLOUDY (CLEAR); BACTERIA, URINE AUTO NEGATIVE (NEGATIVE); BILIRUBIN, URINE AUTO NEGATIVE (NEGATIVE); BLOOD, URINE BLOOD 1+ (NEGATIVE); COLOR, URINE YELLOW (YELLOW); GLUCOSE, URINE (UA) AUTO NEGATIVE (NEGATIVE); KETONE, URINE AUTO NEGATIVE (NEGATIVE); LEUKOCYTE ESTERASE, URINE AUTO 1+ (NEGATIVE); MUCUS, URINE SMALL (NEGATIVE); NITRITE, URINE AUTO NEGATIVE (NEGATIVE); PROTEIN, URINE AUTO NEGATIVE (NEGATIVE); RBC, URINE AUTO 9 /HPF (0-3); SPECIFIC GRAVITY URINE AUTO 1.012 (1.002-1.035); SQUAMOUS EPITHELIAL CELL UR AU 0 /HPF (0-6); UROBILINOGEN, URINE AUTO 0.2 mg/dL (0.0-2.0); WBC, URINE AUTO 9 /HPF (0-3)
== END ==
LOC: M SMT 13:09
PROVIDERS: ATTEND Nurse Practitioner Women's Health
DX: R31.29 Other microscopic hematuria (principal)

== ENCOUNTER → 2022-11-16 | Outpatient (REF) | payer MEDICARE ==
[2022-11-16 13:25] LABS: HEMATOCRIT 42.3 % (36.0-47.0); HEMOGLOBIN 13.4 g/dl (12.0-15.5); MEAN CORPUSCULAR HEMOGLOBIN 28.7 pg (27.0-33.0); MEAN CORPUSCULAR HGB CONC 31.7 g/dl (32.0-36.5); MEAN CORPUSCULAR VOLUME 90.6 fl (80.0-96.0); PLATELET COUNT, AUTOMATED 216 10^3/uL (150-450); RED BLOOD COUNT 4.67 10^6/uL (4.00-5.40); WHITE BLOOD COUNT 6.9 10^3/uL (4.0-10.0)
[2022-11-16 13:54] LABS: ALBUMIN 3.3 G/DL (3.2-5.2); ALKALINE PHOSPHATASE 78 U/L (46-116); ALT/SGPT 11 U/L (7.0-40); AST/SGOT < 8 U/L (<34); BILIRUBIN,TOTAL 0.7 MG/DL (0.3-1.2); BLOOD UREA NITROGEN 13 MG/DL (9-23); CALCIUM LEVEL 9.3 MG/DL (8.3-10.6); CARBON DIOXIDE LEVEL 32 MMOL/L (20-31); CHLORIDE LEVEL 105 MMOL/L (98-107); CHOLESTEROL LEVEL 196 MG/DL (<200); GLOMERULAR FILTRATION RATE > 60.0 (>32); GLUCOSE, FASTING 102 MG/DL (74-106); HDL CHOLESTEROL 69.8 MG/DL (>40); LDL CHOLESTEROL 106.4 MG/DL (<100); NON-HDL-C 126.2 MG/DL; POTASSIUM SERUM 3.7 MMOL/L (3.5-5.1); SODIUM LEVEL 141 MMOL/L (136-145); TOTAL PROTEIN 6.1 G/DL (5.7-8.2); TRIGLYCERIDES LEVEL 99 MG/DL (<150)
== END ==
LOC: M SFHCADAM 07:42
PROVIDERS: ATTEND Physician Assistant
DX: M25.511 Pain in right shoulder (principal); R60.0 Localized edema; I83.93 Asymptomatic varicose veins of bilateral lower extremities; G89.29 Other chronic pain; E78.00 Pure hypercholesterolemia, unspecified

== ENCOUNTER → 2023-02-15 | Outpatient (REF) | payer MEDICARE ==
[2023-02-15 13:50] LABS: APPEARANCE, URINE TURBID (CLEAR); BACTERIA, URINE AUTO NEGATIVE (NEGATIVE); BILIRUBIN, URINE AUTO NEGATIVE (NEGATIVE); BLOOD, URINE BLOOD 2+ (NEGATIVE); COLOR, URINE YELLOW (YELLOW); GLUCOSE, URINE (UA) AUTO NEGATIVE (NEGATIVE); KETONE, URINE AUTO NEGATIVE (NEGATIVE); LEUKOCYTE ESTERASE, URINE AUTO 2+ (NEGATIVE); NITRITE, URINE AUTO POSITIVE (NEGATIVE); PROTEIN, URINE AUTO 2+ mg/dL (NEGATIVE); RBC, URINE AUTO 156 /HPF (0-3); SPECIFIC GRAVITY URINE AUTO 1.009 (1.002-1.035); SQUAMOUS EPITHELIAL CELL UR AU 4 /HPF (0-6); UROBILINOGEN, URINE AUTO 0.2 mg/dL (0.0-2.0); WBC, URINE AUTO TNTC /HPF (0-3)
[2023-02-15 14:03] LABS: HEMATOCRIT 40.5 % (36.0-47.0); MEAN CORPUSCULAR HEMOGLOBIN 28.9 pg (27.0-33.0); MEAN CORPUSCULAR HGB CONC 32.1 g/dl (32.0-36.5); PLATELET COUNT, AUTOMATED 358 10^3/uL (150-450); WHITE BLOOD COUNT 9.8 10^3/uL (4.0-10.0)
[2023-02-15 14:27] LABS: BLOOD UREA NITROGEN 14 MG/DL (9-23); CALCIUM LEVEL 9.4 MG/DL (8.3-10.6); CARBON DIOXIDE LEVEL 29 MMOL/L (20-31); CHLORIDE LEVEL 101 MMOL/L (98-107); CREATININE FOR GFR 0.94 MG/DL (0.55-1.30); GLOMERULAR FILTRATION RATE > 60.0 (>32); GLUCOSE, FASTING 136 MG/DL (74-106); POTASSIUM SERUM 4.1 MMOL/L (3.5-5.1); SODIUM LEVEL 138 MMOL/L (136-145)
== END ==
LOC: M SFHCADAM 12:27
PROVIDERS: ATTEND Physician Assistant
DX: R05.1 Acute cough (principal); R30.0 Dysuria

== ENCOUNTER → 2023-02-24 | Outpatient (REF) | payer MEDICARE ==
[2023-02-24 13:37] LABS: APPEARANCE, URINE HAZY (CLEAR); BACTERIA, URINE AUTO NEGATIVE (NEGATIVE); BILIRUBIN, URINE AUTO NEGATIVE (NEGATIVE); BLOOD, URINE BLOOD 1+ (NEGATIVE); COLOR, URINE YELLOW (YELLOW); GLUCOSE, URINE (UA) AUTO NEGATIVE (NEGATIVE); KETONE, URINE AUTO NEGATIVE (NEGATIVE); LEUKOCYTE ESTERASE, URINE AUTO 3+ (NEGATIVE); MUCUS, URINE SMALL (NEGATIVE); NITRITE, URINE AUTO NEGATIVE (NEGATIVE); PROTEIN, URINE AUTO NEGATIVE (NEGATIVE); RBC, URINE AUTO 13 /HPF (0-3); SPECIFIC GRAVITY URINE AUTO 1.009 (1.002-1.035); SQUAMOUS EPITHELIAL CELL UR AU 4 /HPF (0-6); UROBILINOGEN, URINE AUTO 0.2 mg/dL (0.0-2.0); WBC, URINE AUTO 62 /HPF (0-3)
== END ==
LOC: M SFHCADAM 09:38
PROVIDERS: ATTEND Physician Assistant
DX: N20.0 Calculus of kidney (principal); R31.9 Hematuria, unspecified

== ENCOUNTER → 2023-03-03 | Outpatient (CLI) | payer MEDICARE ==
[~2023-03-03] MED LIST changes: +ISOVUE-370 76% 100ML VIAL ONE
== END ==
LOC: M PLAIMG 09:21
PROVIDERS: ATTEND Physician Assistant
DX: R10.9 Unspecified abdominal pain (principal); R31.29 Other microscopic hematuria
CPT/HCPCS: 74178; Q9967

== ENCOUNTER → 2023-03-31 | Outpatient (REF) | payer MEDICARE ==
[~2023-03-31] MED LIST changes: -ISOVUE-370 76% 100ML VIAL ONE; +VITA30004 PO
[2023-03-31 13:18] LABS: HEMATOCRIT 44.4 % (36.0-47.0); HEMOGLOBIN 14.2 g/dl (12.0-15.5); MEAN CORPUSCULAR VOLUME 90.8 fl (80.0-96.0); PLATELET COUNT, AUTOMATED 271 10^3/uL (150-450); RED BLOOD COUNT 4.89 10^6/uL (4.00-5.40); WHITE BLOOD COUNT 8.2 10^3/uL (4.0-10.0)
[2023-03-31 13:38] LABS: ALBUMIN 3.5 G/DL (3.2-5.2); ALKALINE PHOSPHATASE 73 U/L (46-116); ALT/SGPT 14 U/L (7.0-40); AST/SGOT 9 U/L (<34); BILIRUBIN,TOTAL 0.5 MG/DL (0.3-1.2); BLOOD UREA NITROGEN 15 MG/DL (9-23); CALCIUM LEVEL 9.8 MG/DL (8.3-10.6); CARBON DIOXIDE LEVEL 30 MMOL/L (20-31); CHLORIDE LEVEL 106 MMOL/L (98-107); CREATININE FOR GFR 0.95 MG/DL (0.55-1.30); GLOMERULAR FILTRATION RATE > 60.0 (>32); GLUCOSE, FASTING 99 MG/DL (74-106); POTASSIUM SERUM 4.5 MMOL/L (3.5-5.1); SODIUM LEVEL 142 MMOL/L (136-145); TOTAL PROTEIN 6.5 G/DL (5.7-8.2)
== END ==
LOC: M SFHCADAM 09:44
PROVIDERS: ATTEND Urology
DX: N20.1 Calculus of ureter (principal)

== ENCOUNTER → 2023-03-31 | Outpatient (CLI) | payer MEDICARE ==
[~2023-03-31] MED LIST changes: -VITA30004 PO
== END ==
LOC: M ADAMS 10:02
PROVIDERS: ATTEND Urology
DX: N20.1 Calculus of ureter (principal)

== ENCOUNTER 2023-04-10 08:43 | Day surgery (SDC) | payer MEDICARE ==
[~2023-04-10] VITALS: Ht 175.3 cm; Wt 68.0 kg
[~2023-04-10 08:43] MED LIST changes: +VITA30004 PO
[2023-04-10] MEDS ORDERED: ONDANSETRON 4MG 2ML VIAL As Ordered ONE (09:27)
[2023-04-10] MEDS ORDERED: propofoL 200 MG/20 ML VIAL As Ordered ONE (09:27)
[2023-04-10] MEDS ORDERED: LIDOCAINE 2% 100MG/5ML SDV (FOR ANES.) As Ordered ONE (09:27)
[2023-04-10] MEDS ORDERED: fentaNYL 100 MCG/2 ML INJECTION As Ordered ONE (09:30)
[2023-04-10] MEDS ORDERED: LR 1,000 ML IV SCH ×2 (09:45→11:30)
[2023-04-10] MEDS ORDERED: ISOVUE-300 61% 100ML VIAL As Ordered ONE (09:59)
[2023-04-10] MEDS ORDERED: ceFAZolin SOD 2 GM in IV 1 EA IV ONE (10:05)
[2023-04-10] MEDS ORDERED: OPTI0.5D2 OP (10:15)
[2023-04-10] MEDS ORDERED: ACETAMINOPHEN 1000MG 100ML IV BAG As Ordered ONE (10:29)
[2023-04-10] MEDS ORDERED: OXYB5TAB11 PO (11:21)
[2023-04-10] MEDS ORDERED: PYRI1TAB5 PO (11:21)
[2023-04-10] MEDS ORDERED: MACR100C43 PO (11:21)
[2023-04-10] MEDS ORDERED: oxyCODONE 5MG TAB PO PRN (11:30)
[2023-04-10] MEDS ORDERED: ONDANSETRON 4MG 2ML VIAL IV PRN (11:30)
[2023-04-10] MEDS ORDERED: fentaNYL 100 MCG/2 ML INJECTION IV PRN (11:30)
[2023-04-10] MEDS ORDERED: HYDROMORPHONE HCL 0.5 MG/ 0.5 ML SYRINGE IV PRN (11:30)
[2023-04-10] MEDS ORDERED: LABETALOL 100MG/20ML VIAL As Ordered ONE (11:34)
[2023-04-10] MEDS ORDERED: LABETALOL 100MG/20ML VIAL IV PRN (11:40)
[2023-04-10 11:56] VITALS: TEMP 98.1; O2SAT 96
[2023-04-10 12:22] VITALS: BP 140/81
[2023-04-17 19:12] LABS: CA Oxalate Dihy 40 % (.); Ca Ox Monohydrate 50 % (.); Size 4x4 mm (.)
== END 2023-04-10 13:12 | disposition home or self-care (01) ==
LOC: M SDC 08:43
PROVIDERS: ATTEND Urology
DX: N20.1 Calculus of ureter (principal); N13.5 Crossing vessel and stricture of ureter without hydronephrosis; Z87.442 Personal history of urinary calculi; Z88.5 Allergy status to narcotic agent; Z88.0 Allergy status to penicillin; Z88.2 Allergy status to sulfonamides
CPT/HCPCS: 52344; 52356; 76000; 82365; C1769; C2617; J0131; J1100; J2405; J3010; Q9967

== ENCOUNTER → 2023-04-20 | Outpatient (CLI) | payer MEDICARE ==
[~2023-04-20] MED LIST changes: +MACR100C43 PO; +OPTI0.5D2 OP; +OXYB5TAB11 PO; +PYRI1TAB5 PO
== END ==
LOC: M WHC 12:48
PROVIDERS: ATTEND Physician Assistant
DX: Z12.31 Encounter for screening mammogram for malignant neoplasm of breast (principal); Z13.820 Encounter for screening for osteoporosis; M85.89 Other specified disorders of bone density and structure, multiple sites

== ENCOUNTER → 2023-05-08 | Outpatient (CLI) | payer MEDICARE ==
[~2023-05-08] MED LIST changes: -OXYB5TAB11 PO; +OXYB5TAB14 PO
== END ==
LOC: M RAD 11:02
PROVIDERS: ATTEND Urology
DX: Z96.0 Presence of urogenital implants (principal); N13.30 Unspecified hydronephrosis; N20.0 Calculus of kidney

== ENCOUNTER → 2023-06-27 | Outpatient (CLI) | payer MEDICARE ==
[~2023-06-27] MED LIST changes: +FUROSEMIDE 20MG/2ML VIAL As Ordered ONE
== END ==
LOC: M RAD 07:32
PROVIDERS: ATTEND Urology
DX: N13.5 Crossing vessel and stricture of ureter without hydronephrosis (principal)
CPT/HCPCS: 78708; A9562; J1940

== ENCOUNTER → 2023-11-28 | Outpatient (REF) | payer MEDICARE ==
[~2023-11-28] MED LIST changes: -FUROSEMIDE 20MG/2ML VIAL As Ordered ONE
[2023-11-28 18:05] LABS: HEMATOCRIT 43.6 % (36.0-47.0); HEMOGLOBIN 13.8 g/dl (12.0-15.5); MEAN CORPUSCULAR HEMOGLOBIN 29.2 pg (27.0-33.0); MEAN CORPUSCULAR HGB CONC 31.7 g/dl (32.0-36.5); MEAN CORPUSCULAR VOLUME 92.4 fl (80.0-96.0); PLATELET COUNT, AUTOMATED 246 10^3/uL (150-450); RED BLOOD COUNT 4.72 10^6/uL (4.00-5.40); WHITE BLOOD COUNT 7.7 10^3/uL (4.0-10.0)
[2023-11-28 18:33] LABS: ALBUMIN 3.6 G/DL (3.2-5.2); ALKALINE PHOSPHATASE 85 U/L (46-116); ALT/SGPT 11 U/L (7.0-40); AST/SGOT 9 U/L (<34); BILIRUBIN,TOTAL 0.4 MG/DL (0.3-1.2); BLOOD UREA NITROGEN 19 MG/DL (9-23); CALCIUM LEVEL 9.9 MG/DL (8.3-10.6); CARBON DIOXIDE LEVEL 32 MMOL/L (20-31); CHLORIDE LEVEL 105 MMOL/L (98-107); CHOLESTEROL LEVEL 213 MG/DL (<200); CHOLESTEROL RISK RATIO 2.92 (<5); CREATININE FOR GFR 0.84 MG/DL (0.55-1.30); FREE T4 1.25 NG/DL (0.89-1.76); GLOMERULAR FILTRATION RATE > 60.0 (>32); GLUCOSE, FASTING 72 MG/DL (74-106); HDL CHOLESTEROL 72.7 MG/DL (>40); LDL CHOLESTEROL 111.9 MG/DL (<100); NON-HDL-C 140.3 MG/DL; POTASSIUM SERUM 4.4 MMOL/L (3.5-5.1); SODIUM LEVEL 140 MMOL/L (136-145); THYROID STIMULATING HORMONE 2.083 uIU/ML (0.55-4.78); TOTAL 25(OH) VITAMIN D 60.2 NG/ML (20.0-100.0); TOTAL PROTEIN 6.4 G/DL (5.7-8.2); TRIGLYCERIDES LEVEL 142 MG/DL (<150)
== END ==
LOC: M SFHCADAM 12:15
PROVIDERS: ATTEND Physician Assistant
DX: Z00.00 Encounter for general adult medical examination without abnormal findings (principal); I83.93 Asymptomatic varicose veins of bilateral lower extremities; R60.0 Localized edema; E78.00 Pure hypercholesterolemia, unspecified; E55.9 Vitamin D deficiency, unspecified

== ENCOUNTER → 2023-12-28 | Outpatient (CLI) | payer MEDICARE | LOC: M RAD 14:18 | PROVIDERS: ATTEND Urology | DX: N13.30 Unspecified hydronephrosis (principal) ==

== ENCOUNTER → 2024-01-09 | Outpatient (REF) | payer MEDICARE ==
[2024-01-09 11:03] LABS: APPEARANCE, URINE CLEAR (CLEAR); BACTERIA, URINE AUTO NEGATIVE (NEGATIVE); BILIRUBIN, URINE AUTO NEGATIVE (NEGATIVE); BLOOD, URINE BLOOD 1+ (NEGATIVE); COLOR, URINE YELLOW (YELLOW); GLUCOSE, URINE (UA) AUTO NEGATIVE (NEGATIVE); KETONE, URINE AUTO NEGATIVE (NEGATIVE); LEUKOCYTE ESTERASE, URINE AUTO 2+ (NEGATIVE); MUCUS, URINE SMALL (NEGATIVE); NITRITE, URINE AUTO NEGATIVE (NEGATIVE); PROTEIN, URINE AUTO NEGATIVE (NEGATIVE); RBC, URINE AUTO 8 /HPF (0-3); SPECIFIC GRAVITY URINE AUTO 1.011 (1.002-1.035); SQUAMOUS EPITHELIAL CELL UR AU 1 /HPF (0-6); UROBILINOGEN, URINE AUTO 0.2 mg/dL (0.0-2.0); WBC, URINE AUTO 11 /HPF (0-3)
== END ==
LOC: M SMT 09:31
PROVIDERS: ATTEND Urology
DX: N13.30 Unspecified hydronephrosis (principal); Z79.899 Other long term (current) drug therapy

== ENCOUNTER → 2024-04-24 | Outpatient (CLI) | payer MEDICARE | LOC: M WHC 12:14 | PROVIDERS: ATTEND Physician Assistant | DX: Z12.31 Encounter for screening mammogram for malignant neoplasm of breast (principal); R92.323 Mammographic fibroglandular density, bilateral breasts ==

== ENCOUNTER → 2024-05-06 | Outpatient (CLI) | payer MEDICARE ==
[2024-05-06 17:58] LABS: BASO # 0.1 10^3/uL (0.0-0.2); BASO % 0.8 % (0.0-1.0); EOS # 0.4 10^3/uL (0.0-0.5); EOS % 4.2 % (0.0-3.0); LYMPH # 1.8 10^3/uL (1.5-5.0); LYMPH % 20.4 % (24.0-44.0); MEAN CORPUSCULAR HEMOGLOBIN 28.7 pg (27.0-33.0); MEAN CORPUSCULAR HGB CONC 32.5 g/dl (32.0-36.5); MEAN CORPUSCULAR VOLUME 88.3 fl (80.0-96.0); MONO # 0.8 10^3/uL (0.0-0.8); MONO % 9.4 % (2.0-8.0); NEUTROPHILS # 5.7 10^3/uL (1.5-8.5); NEUTROPHILS % 64.9 % (36.0-66.0); PLATELET COUNT, AUTOMATED 343 10^3/uL (150-450); RED BLOOD COUNT 4.53 10^6/uL (4.00-5.40); WHITE BLOOD COUNT 8.7 10^3/uL (4.0-10.0)
[2024-05-06 18:06] LABS: ERYTHROCYTE SEDIMENTATION RATE 42 mm/hr (0-30)
== END ==
LOC: M PLALAB 14:35
PROVIDERS: ATTEND Ophthalmology
DX: M31.6 Other giant cell arteritis (principal)

== ENCOUNTER → 2024-05-21 | Outpatient (REF) | payer MEDICARE ==
[2024-05-21 18:22] LABS: C REACTIVE PROTEIN QUANTITATIV < 0.50 MG/DL (<1.0)
[2024-05-21 18:23] LABS: RHEUMATOID FACTOR QUANT 4.5 IU/ML (<14)
[2024-05-24 10:02] LABS: ANA PATTERN Nuclear, Centromere (NEGATIVE); ANA SCREEN, IFA POSITIVE (NEGATIVE); ANA TITER > OR = 1:1280 titer (<1:40)
[2024-05-25 18:02] LABS: LYME TOTAL ANTIBODY CIA <= 0.90 Index (<=0.90)
== END ==
LOC: M SFHCADAM 14:02
PROVIDERS: ATTEND Physician Assistant
DX: M31.6 Other giant cell arteritis (principal)

== ENCOUNTER → 2024-06-05 | Outpatient (REF) | payer MEDICARE, OTHER ==
[2024-06-05 18:12] LABS: BASO % 0.2 % (0.0-1.0); HEMATOCRIT 44.9 % (36.0-47.0); HEMOGLOBIN 14.6 g/dl (12.0-15.5); LYMPH # 0.4 10^3/uL (1.5-5.0); MEAN CORPUSCULAR HGB CONC 32.5 g/dl (32.0-36.5); MEAN CORPUSCULAR VOLUME 89.3 fl (80.0-96.0); MONO # 0.1 10^3/uL (0.0-0.8); NEUTROPHILS # 12.8 10^3/uL (1.5-8.5); NEUTROPHILS % 94.8 % (36.0-66.0); PLATELET COUNT, AUTOMATED 307 10^3/uL (150-450); RED BLOOD COUNT 5.03 10^6/uL (4.00-5.40); WHITE BLOOD COUNT 13.5 10^3/uL (4.0-10.0)
[2024-06-05 18:16] LABS: ALBUMIN 3.4 G/DL (3.2-5.2); ALKALINE PHOSPHATASE 62 U/L (35-104); ALT/SGPT 17 U/L (7.0-40); AST/SGOT < 8 U/L (<34); BILIRUBIN,TOTAL 0.5 MG/DL (0.3-1.2); BLOOD UREA NITROGEN 17 MG/DL (9-23); CALCIUM LEVEL 10.2 MG/DL (8.3-10.6); CARBON DIOXIDE LEVEL 30 MMOL/L (20-31); CHLORIDE LEVEL 96 MMOL/L (98-107); CREATININE FOR GFR 1.01 MG/DL (0.55-1.30); GLOMERULAR FILTRATION RATE 55.9 (>32); GLUCOSE, FASTING 226 MG/DL (74-106); MAGNESIUM LEVEL 1.9 MG/DL (1.8-2.4); POTASSIUM SERUM 4.1 MMOL/L (3.5-5.1); SODIUM LEVEL 136 MMOL/L (136-145); TOTAL PROTEIN 6.4 G/DL (5.7-8.2)
[2024-06-05 18:18] LABS: FREE T4 1.55 NG/DL (0.89-1.76)
== END ==
LOC: M SFHCADAM 13:47
PROVIDERS: ATTEND Physician Assistant
DX: I49.1 Atrial premature depolarization (principal); Z79.899 Other long term (current) drug therapy

== ENCOUNTER → 2024-06-07 | Outpatient (REF) | payer MEDICARE, OTHER ==
[2024-06-07 14:58] LABS: HEMOGLOBIN A1c 5.6 % (4.0-6.0)
== END ==
LOC: M SFHCADAM 07:41
PROVIDERS: ATTEND Physician Assistant
DX: R73.9 Hyperglycemia, unspecified (principal)

== ENCOUNTER → 2024-06-18 | Outpatient (REF) | payer MEDICARE, OTHER | LOC: M SFHCRHEU 16:28 | PROVIDERS: ATTEND Internal Medicine | DX: M31.6 Other giant cell arteritis (principal) ==

== ENCOUNTER → 2024-06-21 | Outpatient (REF) | payer MEDICARE, OTHER ==
[2024-06-21 16:55] LABS: APPEARANCE, URINE HAZY (CLEAR); BACTERIA, URINE AUTO NEGATIVE (NEGATIVE); BILIRUBIN, URINE AUTO NEGATIVE (NEGATIVE); BLOOD, URINE BLOOD 2+ (NEGATIVE); COLOR, URINE YELLOW (YELLOW); GLUCOSE, URINE (UA) AUTO 2+ mg/dL (NEGATIVE); KETONE, URINE AUTO NEGATIVE (NEGATIVE); LEUKOCYTE ESTERASE, URINE AUTO 2+ (NEGATIVE); MUCUS, URINE SMALL (NEGATIVE); NITRITE, URINE AUTO NEGATIVE (NEGATIVE); PROTEIN, URINE AUTO NEGATIVE (NEGATIVE); RBC, URINE AUTO 70 /HPF (0-3); SPECIFIC GRAVITY URINE AUTO 1.013 (1.002-1.035); SQUAMOUS EPITHELIAL CELL UR AU 2 /HPF (0-6); UROBILINOGEN, URINE AUTO 0.2 mg/dL (0.0-2.0); WBC, URINE AUTO 13 /HPF (0-3)
[2024-06-21 17:08] LABS: BASO % 0.2 % (0.0-1.0); HEMATOCRIT 46.4 % (36.0-47.0); LYMPH # 0.4 10^3/uL (1.5-5.0); LYMPH % 2.9 % (24.0-44.0); MEAN CORPUSCULAR HEMOGLOBIN 28.6 pg (27.0-33.0); MEAN CORPUSCULAR HGB CONC 32.3 g/dl (32.0-36.5); MEAN CORPUSCULAR VOLUME 88.5 fl (80.0-96.0); MONO # 0.2 10^3/uL (0.0-0.8); MONO % 1.2 % (2.0-8.0); NEUTROPHILS # 14.1 10^3/uL (1.5-8.5); NEUTROPHILS % 93.8 % (36.0-66.0); PLATELET COUNT, AUTOMATED 283 10^3/uL (150-450); RED BLOOD COUNT 5.24 10^6/uL (4.00-5.40)
[2024-06-21 17:22] LABS: ALBUMIN 3.3 G/DL (3.2-5.2); BILIRUBIN,TOTAL 0.4 MG/DL (0.3-1.2); CALCIUM LEVEL 9.5 MG/DL (8.3-10.6); CREATININE FOR GFR 1.02 MG/DL (0.55-1.30); GLOMERULAR FILTRATION RATE 54.9 (>32); POTASSIUM SERUM 4.1 MMOL/L (3.5-5.1); TOTAL PROTEIN 6.4 G/DL (5.7-8.2)
== END ==
LOC: M SFHCADAM 15:03
PROVIDERS: ATTEND Physician Assistant
DX: R79.82 Elevated C-reactive protein (CRP) (principal); I49.49 Other premature depolarization

== ENCOUNTER → 2024-06-21 | Outpatient (CLI) | payer MEDICARE, OTHER | LOC: M ADAMS 15:09 | PROVIDERS: ATTEND Physician Assistant | DX: R79.82 Elevated C-reactive protein (CRP) (principal) ==

== ENCOUNTER → 2024-06-24 | Outpatient (CLI) | payer MEDICARE | LOC: M RAD 12:23 | PROVIDERS: ATTEND Urology | DX: N13.30 Unspecified hydronephrosis (principal); N20.0 Calculus of kidney ==

== ENCOUNTER → 2024-06-26 | Outpatient (CLI) | payer MEDICARE | LOC: M RAD 16:31 | PROVIDERS: ATTEND Physician Assistant | DX: M31.6 Other giant cell arteritis (principal); R76.8 Other specified abnormal immunological findings in serum; H53.9 Unspecified visual disturbance; R51.9 Headache, unspecified; G31.9 Degenerative disease of nervous system, unspecified; Q28.1 Other malformations of precerebral vessels; R29.818 Other symptoms and signs involving the nervous system ==

== ENCOUNTER → 2024-06-26 | Outpatient (CLI) | payer MEDICARE | LOC: M PLALAB 11:52 | PROVIDERS: ATTEND Internal Medicine | DX: M31.6 Other giant cell arteritis (principal) ==

== ENCOUNTER → 2024-07-18 | Outpatient (CLI) | payer MEDICARE ==
[2024-07-18 14:27] LABS: INR 0.92; PARTIAL THROMBOPLASTIN TIME 23.2 SECONDS (24.8-34.2); PROTHROMBIN TIME 12.7 SECONDS (12.5-14.5)
[2024-07-19 09:30] LABS: DRVV SCREEN 36.6 SECONDS
[2024-07-19 09:46] LABS: PTT LUPUS TYPE ANTICOAG SCREEN 0.97 (0-1.20)
== END ==
LOC: M RAD 07:25
PROVIDERS: ATTEND Physician Assistant
DX: I82.412 Acute embolism and thrombosis of left femoral vein (principal); I82.432 Acute embolism and thrombosis of left popliteal vein; I82.442 Acute embolism and thrombosis of left tibial vein; I26.94 Multiple subsegmental thrombotic pulmonary emboli without acute cor pulmonale; M79.89 Other specified soft tissue disorders; R51.9 Headache, unspecified; H57.10 Ocular pain, unspecified eye; I47.19 Other supraventricular tachycardia; R42 Dizziness and giddiness

== ENCOUNTER → 2024-07-22 | Outpatient (REF) | payer MEDICARE, OTHER | LOC: M SFHCADAM 08:21 | PROVIDERS: ATTEND Internal Medicine | DX: M31.6 Other giant cell arteritis (principal) ==

== ENCOUNTER → 2024-07-26 | Outpatient (REF) | payer MEDICARE, OTHER ==
[2024-07-26 13:41] LABS: CALCIUM LEVEL 10.1 MG/DL (8.3-10.6); CREATININE FOR GFR 1.18 MG/DL (0.55-1.30); GLOMERULAR FILTRATION RATE 46.1 (>32); POTASSIUM SERUM 4.2 MMOL/L (3.5-5.1)
== END ==
LOC: M SFHCRHEU 08:24
PROVIDERS: ATTEND Internal Medicine
DX: M31.6 Other giant cell arteritis (principal)

== ENCOUNTER 2024-09-05 07:44 | Day surgery (SDC) | payer MEDICARE ==
[~2024-09-05] VITALS: Ht 175.3 cm; Wt 70.2 kg
[~2024-09-05 07:44] MED LIST changes: +CENTRUM MULTIVITAMIN PO; +ENOX60IN3 SC; +OMEG-19 PO; +PRED10TA2; +PRED20TA; +PRED5TA; +SYST1SOL4 OU
[2024-09-05] MEDS ORDERED: LR 1,000 ML IV SCH (08:10)
[2024-09-05] MEDS ORDERED: LIDOCAINE 2% 100 MG/5 ML SDV (FOR ANES.) As Ordered ONE (09:19)
[2024-09-05] MEDS ORDERED: propofoL 200 MG/20 ML VIAL As Ordered ONE (09:19)
[2024-09-05] MEDS ORDERED: dexAMETHasone 4 MG/ML 1 ML VIAL As Ordered ONE (09:19)
[2024-09-05] MEDS ORDERED: fentaNYL 100 MCG/2 ML INJECTION As Ordered ONE (09:19)
[2024-09-05] MEDS ORDERED: LIDOCAINE 2% JELLY 6 ML SYRINGE As Ordered ONE (09:26)
[2024-09-05] MEDS: ceFAZolin SOD 2 GM IV ONCE IV ONE (09:55)
[2024-09-05] MEDS ORDERED: HYDROCORTISONE 100 MG/2 ML VIAL As Ordered ONE (09:58)
[2024-09-05] MEDS: ISOVUE-300 61% 100 ML VIAL As Ordered ONE (10:20)
[2024-09-05] MEDS ORDERED: ONDANSETRON 4MG 2ML VIAL As Ordered ONE (10:28)
[2024-09-05] MEDS ORDERED: fentaNYL 100 MCG/2 ML INJECTION IV PRN (10:35)
[2024-09-05] MEDS ORDERED: ONDANSETRON 4MG 2ML VIAL IV PRN (10:35)
[2024-09-05 12:14] VITALS: BP 158/72; TEMP 97.1; O2SAT 97
[2024-10-08] MEDS ORDERED: PRED25TA PO (13:37)
[2024-10-08] MEDS ORDERED: ENOX60IN3 (13:37)
[2024-10-08] MEDS ORDERED: OMEP-173 PO (13:37)
[2024-10-08] MEDS ORDERED: ELIQ5TAB PO ×2 (14:27→22:01)
== END 2024-09-05 12:20 | disposition home or self-care (01) ==
LOC: M SDC 07:44
PROVIDERS: ATTEND Urology
DX: N13.1 Hydronephrosis with ureteral stricture, not elsewhere classified (principal); N81.10 Cystocele, unspecified; Z86.711 Personal history of pulmonary embolism; Z79.899 Other long term (current) drug therapy; Z86.718 Personal history of other venous thrombosis and embolism; Z90.49 Acquired absence of other specified parts of digestive tract; Z90.89 Acquired absence of other organs; Z88.2 Allergy status to sulfonamides; Z88.0 Allergy status to penicillin; Z88.5 Allergy status to narcotic agent; Z90.710 Acquired absence of both cervix and uterus; Z87.442 Personal history of urinary calculi; Z87.19 Personal history of other diseases of the digestive system
CPT/HCPCS: 52332; 52341; 76000; C1769; C1894; C2617; J0690; J1720; J2405; J3010; Q9967

== ENCOUNTER → 2024-09-19 | Outpatient (CLI) | payer MEDICARE ==
[~2024-09-19] MED LIST changes: +SYST1SOL4 OP; -SYST1SOL4 OU
== END ==
LOC: M PLALAB 10:55
PROVIDERS: ATTEND Internal Medicine
DX: M31.6 Other giant cell arteritis (principal)

== ENCOUNTER → 2024-09-26 | Outpatient (CLI) | payer MEDICARE ==
[2024-09-26 15:04] LABS: BASO # 0.1 10^3/uL (0.0-0.2); BASO % 0.4 % (0.0-1.0); EOS # 0.0 10^3/uL (0.0-0.5); EOS % 0.2 % (0.0-3.0); LYMPH # 0.7 10^3/uL (1.5-5.0); LYMPH % 5.4 % (24.0-44.0); MONO # 0.5 10^3/uL (0.0-0.8); MONO % 3.8 % (2.0-8.0); NEUTROPHILS # 11.6 10^3/uL (1.5-8.5); NEUTROPHILS % 88.2 % (36.0-66.0); PLATELET COUNT, AUTOMATED 254 10^3/uL (150-450)
[2024-09-26 15:11] LABS: ALT/SGPT 24.0 U/L (7.0-40); AST/SGOT 17.0 U/L (<34); CALCIUM LEVEL 9.7 MG/DL (8.3-10.6); CARBON DIOXIDE LEVEL 29.0 MMOL/L (20-31); CHLORIDE LEVEL 101.0 MMOL/L (98-107); CREATININE FOR GFR 1.09 MG/DL (0.55-1.30); GLOMERULAR FILTRATION RATE 50.4 (>32); POTASSIUM SERUM 4.4 MMOL/L (3.5-5.1); SODIUM LEVEL 140.0 MMOL/L (136-145)
== END ==
LOC: M PLALAB 13:05
PROVIDERS: ATTEND Specialist
DX: I82.402 Acute embolism and thrombosis of unspecified deep veins of left lower extremity (principal); I26.99 Other pulmonary embolism without acute cor pulmonale

== ENCOUNTER → 2024-09-30 | Outpatient (CLI) | payer MEDICARE ==
[~2024-09-30] MED LIST changes: +ISOVUE-370 76% 100 ML VIAL As Ordered ONE
== END ==
LOC: M RAD 10:24
PROVIDERS: ATTEND Specialist
DX: Z86.711 Personal history of pulmonary embolism (principal); Z86.718 Personal history of other venous thrombosis and embolism; I70.0 Atherosclerosis of aorta; K80.20 Calculus of gallbladder without cholecystitis without obstruction; N20.0 Calculus of kidney; Z96.0 Presence of urogenital implants; K57.90 Diverticulosis of intestine, part unspecified, without perforation or abscess without bleeding; R91.8 Other nonspecific abnormal finding of lung field; J98.11 Atelectasis; J81.1 Chronic pulmonary edema
CPT/HCPCS: 71275; 93971; Q9967

== ENCOUNTER 2024-10-08 20:02 | Emergency (ER) | payer MEDICARE ==
[~2024-10-08] VITALS: Ht 175.3 cm; Wt 71.3 kg
[~2024-10-08 20:02] MED LIST changes: +ELIQ5TAB PO; +ENOX60IN3; -ISOVUE-370 76% 100 ML VIAL As Ordered ONE; +OMEP-173 PO; +PRED25TA PO; -SYST1SOL4 OP; +SYST1SOL4 OU
[2024-10-08 21:17] LABS: BASO # 0.0 10^3/uL (0.0-0.2); BASO % 0.3 % (0.0-1.0); EOS # 0.1 10^3/uL (0.0-0.5); EOS % 0.7 % (0.0-3.0); LYMPH # 1.6 10^3/uL (1.5-5.0); LYMPH % 13.5 % (24.0-44.0); MONO # 0.9 10^3/uL (0.0-0.8); MONO % 7.8 % (2.0-8.0); NEUTROPHILS # 8.9 10^3/uL (1.5-8.5); NEUTROPHILS % 74.5 % (36.0-66.0); PLATELET COUNT, AUTOMATED 294 10^3/uL (150-450)
[2024-10-08 21:31] LABS: INR 1.12
[2024-10-08] MEDS ORDERED: PRED5TA PO (22:01)
[2024-10-08] MEDS ORDERED: MED REC COMMENT (22:01)
[2024-10-08] MEDS ORDERED: ELIQ5TAB PO (22:01)
[2024-10-08] MEDS ORDERED: HOME MED LIST COMPLETE! XX SCH (22:05)
[2024-10-08] MEDS: FLUORESCEIN OPHTH 1 MG STRIP OS ONE (22:10)
[2024-10-08] MEDS: PROPARACAINE 0.5% OPHTH SOL 15ML OS ONE (22:10)
[2024-10-09 00:05] VITALS: BP 142/74; TEMP 98; O2SAT 99
== END 2024-10-09 00:07 | disposition home or self-care (01) ==
LOC: M ED 20:02
DX: H11.32 Conjunctival hemorrhage, left eye (principal); E55.9 Vitamin D deficiency, unspecified; K21.9 Gastro-esophageal reflux disease without esophagitis; Z86.711 Personal history of pulmonary embolism; Z86.718 Personal history of other venous thrombosis and embolism; Z88.0 Allergy status to penicillin; Z88.2 Allergy status to sulfonamides; Z88.5 Allergy status to narcotic agent; Z79.01 Long term (current) use of anticoagulants; Z79.52 Long term (current) use of systemic steroids; Z79.810 Long term (current) use of selective estrogen receptor modulators (SERMs); Z79.899 Other long term (current) drug therapy
CPT/HCPCS: 36415; 85025; 85610; 85730; 99284; G0463

== ENCOUNTER → 2024-10-15 | Outpatient (REF) | payer MEDICARE, OTHER ==
[~2024-10-15] MED LIST changes: +MED REC COMMENT; +PRED5TA PO
[2024-10-15 13:15] LABS: BASO # 0.1 10^3/uL (0.0-0.2); BASO % 0.5 % (0.0-1.0); EOS # 0.2 10^3/uL (0.0-0.5); EOS % 1.0 % (0.0-3.0); LYMPH # 2.0 10^3/uL (1.5-5.0); LYMPH % 12.9 % (24.0-44.0); MONO # 1.0 10^3/uL (0.0-0.8); MONO % 6.3 % (2.0-8.0); NEUTROPHILS # 11.9 10^3/uL (1.5-8.5); NEUTROPHILS % 76.3 % (36.0-66.0); PLATELET COUNT, AUTOMATED 327 10^3/uL (150-450)
[2024-10-15 13:21] LABS: CALCIUM LEVEL 10.2 MG/DL (8.3-10.6); CARBON DIOXIDE LEVEL 28.0 MMOL/L (20-31); CHLORIDE LEVEL 101.0 MMOL/L (98-107); CREATININE FOR GFR 1.14 MG/DL (0.55-1.30); GLOMERULAR FILTRATION RATE 47.8 (>32); POTASSIUM SERUM 3.9 MMOL/L (3.5-5.1); SODIUM LEVEL 142.0 MMOL/L (136-145)
[2024-10-15 13:58] LABS: APPEARANCE, URINE MANUAL TURBID (CLEAR); COLOR, URINE MANUAL RED (YELLOW)
[2024-10-15 13:59] LABS: PH,URINE MAN OBSCURED UNITS (5.0 - 7.0)
[2024-10-15 14:00] LABS: SPECIFIC GRAVITY,URINE MANUAL 1.020 (1.002-1.035)
[2024-10-15 14:01] LABS: BILIRUBIN, URINE MANUAL OBSCURED (NEGATIVE); GLUCOSE, URINE (UA) MANUAL OBSCURED mg/dL (NEGATIVE); KETONE, URINE MANUAL OBSCURED mg/dL (NEGATIVE); LEUKOCYTE ESTERASE, URINE MAN OBSCURED (NEGATIVE); NITRITE, URINE MANUAL OBSCURED (NEGATIVE); PROTEIN, URINE MANUAL OBSCURED mg/dL (NEGATIVE); UROBILINOGEN, URINE MANUAL OBSCURED mg/dl (NORMAL)
[2024-10-15 14:02] LABS: BLOOD URINE MANUAL POSITIVE (NEGATIVE)
[2024-10-15 14:12] LABS: BACTERIA, URINE NONE SEEN; HYALINE CAST, URINE NONE SEEN /lpf (0-1); RBC, URINE TNTC /hpf (0-3); SQUAMOUS EPITHELIAL CELL URINE 0 /hpf (SMALL AMT)
[2024-10-15 16:03] LABS: ESTIMATED AVERAGE GLUCOSE 123.0 MG/DL (60-110)
== END ==
LOC: M SFHCADAM 09:10
PROVIDERS: ATTEND Physician Assistant
DX: R73.9 Hyperglycemia, unspecified (principal); T38.0X5D Adverse effect of glucocorticoids and synthetic analogues, subsequent encounter; R31.0 Gross hematuria

== ENCOUNTER → 2024-10-16 | Outpatient (CLI) | payer MEDICARE, OTHER | LOC: M RAD 10:59 | PROVIDERS: ATTEND Physician Assistant | DX: R31.0 Gross hematuria (principal) ==

== ENCOUNTER → 2024-10-22 | Outpatient (REF) | payer MEDICARE, OTHER | LOC: M SFHCADAM 08:34 | PROVIDERS: ATTEND Internal Medicine | DX: M31.6 Other giant cell arteritis (principal) ==

== ENCOUNTER → 2024-11-05 | Outpatient (REF) | payer MEDICARE, OTHER | LOC: M SFHCADAM 10:16 | PROVIDERS: ATTEND Physician Assistant | DX: R14.3 Flatulence (principal); R19.4 Change in bowel habit ==

== ENCOUNTER → 2024-11-08 | Outpatient (REF) | payer MEDICARE, OTHER ==
[2024-11-08 15:52] LABS: BASO # 0.1 10^3/uL (0.0-0.2); BASO % 0.3 % (0.0-1.0); EOS # 0.1 10^3/uL (0.0-0.5); EOS % 0.7 % (0.0-3.0); LYMPH # 0.9 10^3/uL (1.5-5.0); LYMPH % 6.1 % (24.0-44.0); MONO # 0.7 10^3/uL (0.0-0.8); MONO % 4.5 % (2.0-8.0); NEUTROPHILS # 12.9 10^3/uL (1.5-8.5); NEUTROPHILS % 87.3 % (36.0-66.0); PLATELET COUNT, AUTOMATED 417 10^3/uL (150-450)
[2024-11-08 16:17] LABS: CALCIUM LEVEL 10.1 MG/DL (8.3-10.6); CARBON DIOXIDE LEVEL 31 MMOL/L (20-31); CHLORIDE LEVEL 100 MMOL/L (98-107); CREATININE FOR GFR 1.03 MG/DL (0.55-1.30); GLOMERULAR FILTRATION RATE 54.0 (>32); IRON (FE) 24 UG/DL (50-170); MAGNESIUM LEVEL 1.8 MG/DL (1.8-2.4); PERCENT SATURATION 6.3 % (13.2-45.0); PHOSPHORUS LEVEL 3.4 MG/DL (2.4-5.1); POTASSIUM SERUM 3.8 MMOL/L (3.5-5.1); SODIUM LEVEL 143 MMOL/L (136-145)
[2024-11-08 16:19] LABS: VITAMIN B12 LEVEL 253 PG/ML (211-911)
[2024-11-08 16:20] LABS: TOTAL 25(OH) VITAMIN D 34.1 NG/ML (20.0-100.0)
== END ==
LOC: M SFHCRHEU 08:49
PROVIDERS: ATTEND Internal Medicine
DX: N28.9 Disorder of kidney and ureter, unspecified (principal); R53.83 Other fatigue; D50.9 Iron deficiency anemia, unspecified; E55.9 Vitamin D deficiency, unspecified

== ENCOUNTER → 2024-12-03 | Outpatient (REF) | payer MEDICARE, OTHER ==
[2024-12-03 15:08] LABS: BASO # 0.1 10^3/uL (0.0-0.2); BASO % 0.8 % (0.0-1.0); EOS # 0.2 10^3/uL (0.0-0.5); EOS % 1.7 % (0.0-3.0); LYMPH # 1.5 10^3/uL (1.5-5.0); LYMPH % 15.1 % (24.0-44.0); MONO # 0.8 10^3/uL (0.0-0.8); MONO % 7.6 % (2.0-8.0); NEUTROPHILS # 7.4 10^3/uL (1.5-8.5); NEUTROPHILS % 73.8 % (36.0-66.0); PLATELET COUNT, AUTOMATED 322 10^3/uL (150-450)
[2024-12-03 15:11] LABS: IRON (FE) 43.0 UG/DL (50-170)
[2024-12-03 15:12] LABS: ALT/SGPT 17.0 U/L (7.0-40); AST/SGOT 14.0 U/L (<34); CALCIUM LEVEL 9.7 MG/DL (8.3-10.6); CARBON DIOXIDE LEVEL 31.0 MMOL/L (20-31); CHLORIDE LEVEL 103.0 MMOL/L (98-107); CREATININE FOR GFR 1.08 MG/DL (0.55-1.30); GLOMERULAR FILTRATION RATE 51.0 (>32); PERCENT SATURATION 11.6 % (13.2-45.0); POTASSIUM SERUM 3.7 MMOL/L (3.5-5.1); SODIUM LEVEL 142.0 MMOL/L (136-145)
== END ==
LOC: M SFHCADAM 08:03
PROVIDERS: ATTEND Physician Assistant
DX: E53.8 Deficiency of other specified B group vitamins (principal); D50.0 Iron deficiency anemia secondary to blood loss (chronic); R31.0 Gross hematuria; Z96.0 Presence of urogenital implants; Z86.711 Personal history of pulmonary embolism; Z79.52 Long term (current) use of systemic steroids

== ENCOUNTER → 2024-12-10 | Outpatient (REF) | payer MEDICARE, OTHER ==
[2024-12-10 14:14] LABS: BASO # 0.1 10^3/uL (0.0-0.2); BASO % 0.6 % (0.0-1.0); EOS # 0.2 10^3/uL (0.0-0.5); EOS % 2.1 % (0.0-3.0); LYMPH # 3.0 10^3/uL (1.5-5.0); LYMPH % 34.2 % (24.0-44.0); MONO # 0.8 10^3/uL (0.0-0.8); MONO % 9.0 % (2.0-8.0); NEUTROPHILS # 4.6 10^3/uL (1.5-8.5); NEUTROPHILS % 53.0 % (36.0-66.0); PLATELET COUNT, AUTOMATED 330 10^3/uL (150-450)
[2024-12-10 14:15] LABS: ALT/SGPT 15.0 U/L (7.0-40); AST/SGOT 14.0 U/L (<34); CALCIUM LEVEL 10.1 MG/DL (8.3-10.6); CARBON DIOXIDE LEVEL 34.0 MMOL/L (20-31); CHLORIDE LEVEL 102.0 MMOL/L (98-107); CREATININE FOR GFR 1.03 MG/DL (0.55-1.30); GLOMERULAR FILTRATION RATE 54.0 (>32); POTASSIUM SERUM 3.5 MMOL/L (3.5-5.1); SODIUM LEVEL 143.0 MMOL/L (136-145)
== END ==
LOC: M LABDRWAD 13:06
PROVIDERS: ATTEND Specialist
DX: I26.99 Other pulmonary embolism without acute cor pulmonale (principal)

== ENCOUNTER → 2024-12-18 | Outpatient (REF) | payer MEDICARE, OTHER ==
[~2024-12-18] MED LIST changes: +B-122500 PO; +HYDR12.510
[2024-12-18 15:08] LABS: ALT/SGPT 15.0 U/L (7.0-40); AST/SGOT 15.0 U/L (<34); CALCIUM LEVEL 10.2 MG/DL (8.3-10.6); CARBON DIOXIDE LEVEL 33.0 MMOL/L (20-31); CHLORIDE LEVEL 103.0 MMOL/L (98-107); CREATININE FOR GFR 1.05 MG/DL (0.55-1.30); GLOMERULAR FILTRATION RATE 52.7 (>32); POTASSIUM SERUM 3.2 MMOL/L (3.5-5.1); SODIUM LEVEL 144.0 MMOL/L (136-145)
[2024-12-18 15:15] LABS: PLATELET COUNT, AUTOMATED 283 10^3/uL (150-450)
== END ==
LOC: M SFHCADAM 07:46
PROVIDERS: ATTEND Urology
DX: Z96.0 Presence of urogenital implants (principal); M31.6 Other giant cell arteritis

== ENCOUNTER → 2024-12-18 | Outpatient (REF) | payer MEDICARE, OTHER | LOC: M LABDRWAD 15:22 | PROVIDERS: ATTEND Internal Medicine | DX: M31.6 Other giant cell arteritis (principal) ==

== ENCOUNTER → 2024-12-27 | Outpatient (CLI) | payer MEDICARE, OTHER | LOC: M RAD 15:55 | PROVIDERS: ATTEND Physician Assistant | DX: Z96.0 Presence of urogenital implants (principal); N20.0 Calculus of kidney ==

== ENCOUNTER → 2025-01-16 | Outpatient (REF) | payer OTHER | LOC: M SFHCADAM 07:59 | PROVIDERS: ATTEND Internal Medicine | DX: M31.6 Other giant cell arteritis (principal) ==

== ENCOUNTER → 2025-02-05 | Outpatient (REF) | payer OTHER ==
[~2025-02-05] MED LIST changes: +FLORCAP6 PO; +IRON240T PO; +PRED-1142 PO
[2025-02-05 14:03] LABS: BASO # 0.1 10^3/uL (0.0-0.2); BASO % 0.5 % (0.0-1.0); EOS # 0.2 10^3/uL (0.0-0.5); EOS % 1.8 % (0.0-3.0); LYMPH # 1.0 10^3/uL (1.5-5.0); LYMPH % 9.0 % (24.0-44.0); MONO # 1.1 10^3/uL (0.0-0.8); MONO % 10.2 % (2.0-8.0); NEUTROPHILS # 8.5 10^3/uL (1.5-8.5); NEUTROPHILS % 78.1 % (36.0-66.0); PLATELET COUNT, AUTOMATED 274 10^3/uL (150-450)
[2025-02-05 20:03] LABS: ALT/SGPT 13.0 U/L (7.0-40); AST/SGOT 13.0 U/L (<34); CALCIUM LEVEL 10.2 MG/DL (8.3-10.6); CARBON DIOXIDE LEVEL 31.0 MMOL/L (20-31); CHLORIDE LEVEL 99.0 MMOL/L (98-107); CREATININE FOR GFR 1.33 MG/DL (0.55-1.30); GLOMERULAR FILTRATION RATE 39.7 (>32); POTASSIUM SERUM 3.7 MMOL/L (3.5-5.1); SODIUM LEVEL 141.0 MMOL/L (136-145)
== END ==
LOC: M LABDRWAD 13:25
PROVIDERS: ATTEND Internal Medicine Medical Oncology
DX: I26.99 Other pulmonary embolism without acute cor pulmonale (principal)

== ENCOUNTER → 2025-02-17 | Outpatient (REF) | payer MEDICARE | LOC: M LABDRWAD 12:46 | PROVIDERS: ATTEND Internal Medicine | DX: M31.6 Other giant cell arteritis (principal) ==

== ENCOUNTER → 2025-03-17 | Outpatient (REF) | payer OTHER | LOC: M SFHCADAM 08:11 | PROVIDERS: ATTEND Internal Medicine | DX: M31.6 Other giant cell arteritis (principal) ==